=== PATIENT | female | born 1940 | race Caucasian/White ===

== ENCOUNTER → 2024-01-30 11:37 | Outpatient (REF) | payer MEDICARE, OTHER, SELFPAY ==
[2024-01-30 13:36] LABS: Hematocrit 33.7 % (37.0-47.0); Hemoglobin 11.6 g/dL (12.0-16.0); Mean Corp Hgb Conc. 34.4 g/dL (33.0-37.0); Mean Corpuscular Hgb 30.9 pg (27.0-31.0); Mean Corpuscular Volume 89.6 fL (81.0-99.0); Platelet Count 284 10^3/uL (130-400); Red Blood Cell Count 3.76 10^6/uL (4.20-5.40); Red Cell Dist. Width 12.7 % (11.5-14.5); White Blood Cell Count 9.9 10^3/uL (4.8-10.8)
[2024-01-30 13:59] LABS: ALT (SGPT) < 10 U/L (0-35); AST (SGOT) 14 U/L (14-36); Alkaline Phosphatase 61 U/L (38-126); Blood Urea Nitrogen 19 mg/dl (7-17); Calcium 8.7 mg/dl (8.4-10.2); Carbon Dioxide 29 mmol/L (22-30); Chloride 102 mmol/L (98-107); Glucose 76 mg/dl (70-99); Potassium 4.2 mmol/L (3.5-5.1); Sodium 136 mmol/L (135-145); Total Bilirubin 0.2 mg/dl (0.2-1.3); Total Protein 5.9 g/dl (6.3-8.2); eGFR > 60.00
== END ==
LOC: OLABWHC 11:37
PROVIDERS: ATTENDING PHYSICIAN Family Medicine
DX: G80.9 Cerebral palsy, unspecified (principal); G40.919 Epilepsy, unspecified, intractable, without status epilepticus
CPT/HCPCS: 36415; 80053; 85027

== ENCOUNTER → 2024-07-18 09:13 | Outpatient (REF) | payer MEDICARE, SELFPAY ==
[2024-07-18 10:46] LABS: Depakane 53.9 ug/ml (50.0-120.0)
[2024-07-19 20:14] LABS: Keppra (Levetiracetam) 37 ug/mL (10-40)
== END ==
LOC: OLABWHC 09:13
PROVIDERS: ATTENDING PHYSICIAN Family Medicine
DX: G80.9 Cerebral palsy, unspecified (principal); G40.919 Epilepsy, unspecified, intractable, without status epilepticus; F43.23 Adjustment disorder with mixed anxiety and depressed mood
CPT/HCPCS: 36415; 80164; 80177; 80184

== ENCOUNTER → 2024-12-12 12:48 | Outpatient (REF) | payer MEDICARE, OTHER, SELFPAY ==
[2024-12-12 13:19] LABS: Hematocrit 34.8 % (37.0-47.0); Hemoglobin 11.4 g/dL (12.0-16.0); Mean Corp Hgb Conc. 32.8 g/dL (33.0-37.0); Mean Corpuscular Volume 94.6 fL (81.0-99.0); Mean Platelet Volume 8.6 fL (7.4-10.4); Platelet Count 306 10^3/uL (130-400); Red Blood Cell Count 3.68 10^6/uL (4.20-5.40); Red Cell Dist. Width 12.7 % (11.5-14.5); White Blood Cell Count 11.9 10^3/uL (4.8-10.8)
[2024-12-12 14:36] LABS: Depakane 54.4 ug/ml (50.0-120.0)
[2024-12-12 16:43] LABS: TSH Reflex To Free T4 2.62 uIU/ml (0.47-4.68)
[2024-12-12 17:44] LABS: ALT (SGPT) < 10 U/L (0-35); AST (SGOT) 15 U/L (14-36); Albumin 2.7 g/dl (3.5-5.0); Alkaline Phosphatase 73 U/L (38-126); Blood Urea Nitrogen 11 mg/dl (7-17); Calcium 8.1 mg/dl (8.4-10.2); Carbon Dioxide 32 mmol/L (22-30); Chloride 100 mmol/L (98-107); Glucose 70 mg/dl (70-99); Potassium 4.4 mmol/L (3.5-5.1); Sodium 137 mmol/L (135-145); Total Bilirubin 0.1 mg/dl (0.2-1.3); Total Protein 5.5 g/dl (6.3-8.2); eGFR > 60.00
[2024-12-15 01:57] LABS: Keppra (Levetiracetam) 50 ug/mL (10-40)
== END ==
LOC: OLABWHC 12:48
PROVIDERS: ATTENDING PHYSICIAN Family Medicine
DX: G40.919 Epilepsy, unspecified, intractable, without status epilepticus (principal); F43.23 Adjustment disorder with mixed anxiety and depressed mood; M62.81 Muscle weakness (generalized)
CPT/HCPCS: 36415; 80053; 80164; 80177; 83735; 84443; 85027

== ENCOUNTER → 2024-12-17 09:27 | Outpatient (REF) | payer MEDICARE, OTHER, SELFPAY ==
[2024-12-17 13:46] LABS: Urine Albumin 1+ (Neg - Trace); Urine Bilirubin Negative (Negative); Urine Character Slightly Cloudy (Clear); Urine Color Yellow; Urine Glucose Negative (Negative); Urine Ketone 1+ (Negative); Urine Leukocyte 3+ (Negative); Urine Nitrite Negative (Negative); Urine Occult Blood 1+ (Negative); Urine Urobilinogen Negative (Neg - 1+)
[2024-12-17 15:37] LABS: Urine Mucus Few
[2024-12-17 15:38] LABS: Urine Bacteria Many (Negative); Urine White Cell 70-80 /HPF (0-5)
== END ==
LOC: OLABWHC 09:27
PROVIDERS: ATTENDING PHYSICIAN Family Medicine
DX: N39.0 Urinary tract infection, site not specified (principal)
CPT/HCPCS: 81003; 81015; 87077; 87086; 87186

== ENCOUNTER → 2025-01-11 09:21 | Outpatient (REF) | payer MEDICARE, OTHER, SELFPAY ==
[2025-01-11 11:38] LABS: Hematocrit 36.6 % (37.0-47.0); Hemoglobin 12.3 g/dL (12.0-16.0); Mean Corp Hgb Conc. 33.6 g/dL (33.0-37.0); Mean Corpuscular Hgb 30.8 pg (27.0-31.0); Mean Corpuscular Volume 91.5 fL (81.0-99.0); Mean Platelet Volume 8.7 fL (7.4-10.4); Platelet Count 344 10^3/uL (130-400); Red Cell Dist. Width 12.4 % (11.5-14.5); White Blood Cell Count 9.2 10^3/uL (4.8-10.8)
[2025-01-11 11:44] LABS: ALT (SGPT) < 10 U/L (0-35); AST (SGOT) 16 U/L (14-36); Albumin 3.2 g/dl (3.5-5.0); Alkaline Phosphatase 85 U/L (38-126); Blood Urea Nitrogen 8 mg/dl (7-17); Calcium 9.2 mg/dl (8.4-10.2); Carbon Dioxide 30 mmol/L (22-30); Chloride 103 mmol/L (98-107); Glucose 78 mg/dl (70-99); Potassium 4.6 mmol/L (3.5-5.1); Sodium 139 mmol/L (135-145); Total Bilirubin 0.5 mg/dl (0.2-1.3); Total Protein 6.2 g/dl (6.3-8.2); eGFR > 60.00
[2025-01-11 12:19] LABS: Free T4 1.27 ng/dl (0.78-2.19)
[2025-01-12 22:28] LABS: Keppra (Levetiracetam) 44 ug/mL (10-40)
== END ==
LOC: OLABWHC 09:21
PROVIDERS: ATTENDING PHYSICIAN Family Medicine
DX: D64.9 Anemia, unspecified (principal); G80.9 Cerebral palsy, unspecified; I10 Essential (primary) hypertension
CPT/HCPCS: 36415; 80053; 80164; 80177; 83735; 84439; 84443; 85027

== ENCOUNTER → 2025-02-19 11:46 | Outpatient (REF) | payer MEDICARE, OTHER, SELFPAY ==
[2025-02-21 21:36] LABS: Keppra (Levetiracetam) 34 ug/mL (10-40)
== END ==
LOC: OLABWHC 11:46
PROVIDERS: ATTENDING PHYSICIAN Family Medicine
DX: G40.919 Epilepsy, unspecified, intractable, without status epilepticus (principal)
CPT/HCPCS: 36415; 80177

== ENCOUNTER → 2025-06-24 11:31 | Outpatient (REF) | payer MEDICARE, OTHER, SELFPAY | LOC: OLABWHC 11:31 | PROVIDERS: ATTENDING PHYSICIAN Family Medicine | DX: G40.919 Epilepsy, unspecified, intractable, without status epilepticus (principal) | CPT/HCPCS: 36415; 80184 ==

== ENCOUNTER → 2025-06-25 11:14 | Outpatient (REF) | payer MEDICARE, OTHER, SELFPAY | LOC: RAD 11:14 | PROVIDERS: ATTENDING PHYSICIAN Obstetrics & Gynecology Gynecologic Oncology | DX: C51.0 Malignant neoplasm of labium majus (principal); F03.90 Unspecified dementia, unspecified severity, without behavioral disturbance, psychotic disturbance, mood disturbance, and anxiety; G40.901 Epilepsy, unspecified, not intractable, with status epilepticus; G80.9 Cerebral palsy, unspecified | CPT/HCPCS: 71260; 72197; 74177; A9575; Q9967 ==

== ENCOUNTER → 2025-07-01 11:08 | Outpatient (REF) | payer OTHER, SELFPAY ==
[2025-07-01 12:39] LABS: Depakane 75.0 ug/ml (50.0-120.0)
== END ==
LOC: OLABWHC 11:08
PROVIDERS: ATTENDING PHYSICIAN Family Medicine
DX: G40.919 Epilepsy, unspecified, intractable, without status epilepticus (principal); G80.9 Cerebral palsy, unspecified
CPT/HCPCS: 36415; 80164; 80177

== ENCOUNTER → 2025-09-13 10:52 | Outpatient (REF) | payer MEDICARE, OTHER, SELFPAY ==
[2025-09-13 11:48] LABS: Hematocrit 35.2 % (37.0-47.0); Hemoglobin 11.5 g/dL (12.0-16.0); Mean Corp Hgb Conc. 32.7 g/dL (33.0-37.0); Mean Corpuscular Volume 95.7 fL (81.0-99.0); Nucleated Red Blood Cells % 0 %; Platelet Count 277 10^3/uL (130-400); Red Cell Dist. Width 12.7 % (11.5-14.5)
[2025-09-13 12:04] LABS: Blood Urea Nitrogen 17 mg/dl (7-17); Calcium 8.6 mg/dl (8.4-10.2); Carbon Dioxide 33 mmol/L (22-30); Chloride 103 mmol/L (98-107); Glucose 71 mg/dl (70-99); Iron 69 ug/dl (37-170); Potassium 4.0 mmol/L (3.5-5.1); Sodium 139 mmol/L (135-145); eGFR > 60.00
[2025-09-13 12:14] LABS: Total Iron Binding Capacity 246 ug/dl (265-497)
[2025-09-13 12:39] LABS: Ferritin 27.9 ng/ml (11.1-264.0)
== END ==
LOC: OLABWHC 10:52
PROVIDERS: ATTENDING PHYSICIAN Family Medicine
DX: D64.9 Anemia, unspecified (principal); C51.9 Malignant neoplasm of vulva, unspecified; G80.9 Cerebral palsy, unspecified
CPT/HCPCS: 36415; 80048; 82728; 83540; 83550; 85025

== ENCOUNTER → 2025-09-18 12:48 | Outpatient (REF) | payer MEDICARE, OTHER, SELFPAY ==
[2025-09-18 14:08] LABS: Hematocrit 35.6 % (37.0-47.0); Hemoglobin 11.4 g/dL (12.0-16.0); Mean Corp Hgb Conc. 32.0 g/dL (33.0-37.0); Mean Corpuscular Volume 93.7 fL (81.0-99.0); Nucleated Red Blood Cells % 0 %; Platelet Count 298 10^3/uL (130-400); Red Cell Dist. Width 12.8 % (11.5-14.5)
[2025-09-18 14:26] LABS: Blood Urea Nitrogen 12 mg/dl (7-17); Calcium 8.7 mg/dl (8.4-10.2); Carbon Dioxide 31 mmol/L (22-30); Chloride 105 mmol/L (98-107); Glucose 78 mg/dl (70-99); Potassium 4.0 mmol/L (3.5-5.1); Sodium 137 mmol/L (135-145); eGFR > 60.00
== END ==
LOC: OLABWHC 12:48
PROVIDERS: ATTENDING PHYSICIAN Family Medicine
DX: I10 Essential (primary) hypertension (principal); D64.9 Anemia, unspecified; C51.0 Malignant neoplasm of labium majus
CPT/HCPCS: 36415; 80048; 85025